=== PATIENT | female | born 1970 | race Caucasian/White ===

== ENCOUNTER 2016-12-16 13:03 | Emergency (ER) | payer BC ==
[2016-12-16 12:25] LABS: BASOPHILS 0.2 %; BASOPHILS ABSOLUTE 0.03 10/3/uL (0.0-0.16); EOSINOPHILS 0.3 %; EOSINOPHILS ABSOLUTE 0.05 10/3/uL (0.0-0.53); ER CBC TAT 0 Hrs 05 Mins; HEMOGLOBIN 14.9 g/dL (12.0-16.0); IMMATURE GRANULOCYTES 0.3 %; IMMATURE GRANULOCYTES ABSOLUTE 0.05 10/3/uL (0.0-0.11); LYMPHOCYTES 11.5 %; LYMPHOCYTES ABSOLUTE 1.95 10/3/uL (0.67-4.30); MANUAL DIFF NO %; MEAN CORPUS HGB CONC 35.5 g/dL (32.0-36.0); MEAN CORPUSCULAR HEMOGLOB 29.6 pg (26.0-34.0); MEAN CORPUSCULAR VOLUME 83.5 fL (80-100); MEAN PLATELET VOLUME 11.3 fL (9.2-13.0); MONOCYTES 2.7 %; MONOCYTES ABSOLUTE 0.46 10/3/uL (0.21-1.20); NEUTROPHILS ABSOLUTE 14.45 10/3/uL (2.02-8.40); PLATELET COUNT 286 10/3/uL (150-400); RBC DISTRIBUTION WIDTH 12.7 % (12.0-16.0); RED CELL COUNT 5.03 10/6/uL (4.0-5.6)
[2016-12-16 12:43] LABS: ALBUMIN 3.9 G/DL (3.5-5.0); ALKALINE PHOSPHATASE 94 U/L (45-117); BUN (BLOOD UREA NITROGEN) 14 MG/DL (6-23); CALCIUM, SERUM 9.7 MG/DL (8.5-10.4); CHLORIDE, SERUM 104 MMOL/L (96-112); CO2 (CARBON DIOXIDE) 27 MMOL/L (24-34); CREATININE 0.74 MG/DL (0.55-1.02); GFR AFRICAN AMERICAN 114 ML/MIN (>=60); GFR NON AFRICAN AMERICAN 99 ML/MIN (>=60); GLOBULIN 4.1 G/DL (2.5-4.1); GLUCOSE, SERUM 117 MG/DL (60-99); POTASSIUM, SERUM 2.6 MMOL/L (3.5-5.3); SGOT(AST) 23 U/L (5-40); SGPT(ALT) 40 U/L (5-65); SODIUM, SERUM 138 MMOL/L (135-148); TOTAL BILIRUBIN 0.4 MG/DL (0-1.2); TROPONIN I <0.02 NG/ML (<0.05)
[2016-12-16 12:46] LABS: LACTATE 2.2 MMOL/L (0.3-2.4)
[2016-12-16 12:53] LABS: ASCORBIC ACID (UR NOT ORDER) NEG (NEG); BILIRUBIN, URINE NEGATIVE (NEG); ER URINALYSIS TAT 0 Hrs 13 Mins; KETONE, URINE TRACE MG/DL (NEG); LEUKOCYTE ESTERASE(NOT OR NEG (NEG); NITRITE (URINE) NEG (NEG); WBC (NOT ORDERED) (RFLEX) 1 (0-5)
[~2016-12-16 13:03] MED LIST: ACAI500 MG OR; ACIPHEX PO; ADVIL PO; ANASPAZ0.125 MG PO; AZO-TABS95 MG OR; BEN25 PO; BIOTIN1000 MCG OR; CALTRA600D PO; CYANO1000T PO; FLEX PO; METHOC500B PO; MSCONT15 PO; MULTIPLE VIT PO; NEUR300 PO; NEXIUM40 PO; PEP20 PO; PR25 PO; PRISTIQ50 MG PO; PROMEGA PO; TENORETIC1 TAB PO; TRI-SPRINTEC PO; V5 PO; VITE PO; XOPEN0.5ML INH; XOPENEX INH; [UNRECOGNIZED DRUG - OTHER]; [UNRECOGNIZED DRUG - OTHER]
[2016-12-29] MEDS ORDERED: CAMRESE PO (11:24)
[2016-12-29] MEDS ORDERED: BENTYL10 PO (11:28)
[2016-12-29] MEDS ORDERED: SIMETHICONE PO (11:29)
[2016-12-29] MEDS ORDERED: MEP50TAB PO (11:30)
[2016-12-29] MEDS ORDERED: KLOR-CON M2020 MEQ PO (11:32)
[2016-12-29] MEDS ORDERED: VITAMIN D31000 UNIT PO (11:33)
[2016-12-29] MEDS ORDERED: BIOTIN5 MG PO (11:34)
[2016-12-29] MEDS ORDERED: MULTIPLE VIT PO (11:35)
[2016-12-29] MEDS ORDERED: TUMERIC PO (11:36)
[2016-12-29] MEDS ORDERED: STOOL SOFTEN240 MG PO (11:37)
[2016-12-29] MEDS ORDERED: BENEFIBER PO (11:37)
== END 2016-12-16 20:04 | disposition home or self-care (01) ==
LOC: ER 13:03
PROVIDERS: Nurse Practitioner
DX: K80.50 Calculus of bile duct without cholangitis or cholecystitis without obstruction (principal); E87.6 Hypokalemia; I10 Essential (primary) hypertension; J45.909 Unspecified asthma, uncomplicated; K21.9 Gastro-esophageal reflux disease without esophagitis; Z88.2 Allergy status to sulfonamides; Z88.5 Allergy status to narcotic agent; Z88.8 Allergy status to other drugs, medicaments and biological substances; Z88.0 Allergy status to penicillin; Z79.899 Other long term (current) drug therapy
CPT/HCPCS: 74176; 76705; 80053; 81001; 83605; 83690; 84484; 84703; 85025; 93005; 96374; 96375; 96376; 99285; A9270-GY; J1170; J2405; J2550; J3480

== ENCOUNTER 2017-01-01 09:48 | Day surgery (SDC) | payer BC ==
[2016-12-28 19:52] LABS: BASOPHILS 0.4 %; BASOPHILS ABSOLUTE 0.03 10/3/uL (0.0-0.16); EOSINOPHILS 1.4 %; EOSINOPHILS ABSOLUTE 0.12 10/3/uL (0.0-0.53); HEMATOCRIT 41.8 % (36.0-48.0); HEMOGLOBIN 13.6 g/dL (12.0-16.0); IMMATURE GRANULOCYTES 0.2 %; IMMATURE GRANULOCYTES ABSOLUTE 0.02 10/3/uL (0.0-0.11); LYMPHOCYTES 28.4 %; LYMPHOCYTES ABSOLUTE 2.39 10/3/uL (0.67-4.30); MEAN CORPUSCULAR HEMOGLOB 28.3 pg (26.0-34.0); MONOCYTES 3.7 %; MONOCYTES ABSOLUTE 0.31 10/3/uL (0.21-1.20); NEUTROPHILS 65.9 %; NEUTROPHILS ABSOLUTE 5.55 10/3/uL (2.02-8.40); RBC DISTRIBUTION WIDTH 12.8 % (12.0-16.0); RED CELL COUNT 4.81 10/6/uL (4.0-5.6)
[2016-12-28 19:54] LABS: MANUAL DIFF NO %; MEAN CORPUS HGB CONC 32.5 g/dL (32.0-36.0); MEAN CORPUSCULAR VOLUME 86.9 fL (80-100); PLATELET COUNT 384 10/3/uL (150-400); WHITE BLOOD CELLS 8.4 10/3/uL (4.5-10.5)
[2016-12-28 20:04] LABS: ALBUMIN 3.6 G/DL (3.5-5.0); ALKALINE PHOSPHATASE 103 U/L (45-117); BUN (BLOOD UREA NITROGEN) 10 MG/DL (6-23); CALCIUM, SERUM 9.4 MG/DL (8.5-10.4); CHLORIDE, SERUM 106 MMOL/L (96-112); CO2 (CARBON DIOXIDE) 26 MMOL/L (24-34); CREATININE 1.01 MG/DL (0.55-1.02); GFR AFRICAN AMERICAN 78 ML/MIN (>=60); GFR NON AFRICAN AMERICAN 68 ML/MIN (>=60); GLOBULIN 3.5 G/DL (2.5-4.1); GLUCOSE, SERUM 93 MG/DL (60-99); POTASSIUM, SERUM 3.8 MMOL/L (3.5-5.3); SGOT(AST) 29 U/L (5-40); SGPT(ALT) 43 U/L (5-65); SODIUM, SERUM 138 MMOL/L (135-148); TOTAL BILIRUBIN 0.3 MG/DL (0-1.2); TOTAL PROTEIN 7.1 G/DL (6.0-8.5)
--- NOTE | ~2017-01-01 | OP ---
Record Of Operation [facility] [address] [place]. [address] NAME: ANTONIO BUTCHER : 74 STATUS : REG [facility]#: [id number] AGE: 46 ADM/REG DATE : 01/01/17 MR#: [id number] REPORT SERV DATE: 01/02/17 DICTATED BY: TIMMY WOLF III DATE: 01/02/17 REPORT STATUS : Draft TRANSCRIBED BY: MODMarcia DATE: 01/02/17 DATE OF PROCEDURE: 01/01/2017 PREOPERATIVE DIAGNOSIS: Symptomatic cholelithiasis and cholecystitis. POSTOPERATIVE DIAGNOSIS: Symptomatic cholelithiasis and cholecystitis, severe cholecystitis. PROCEDURE: Laparoscopic cholecystectomy. ANESTHESIA: General with intubation. COMPLICATIONS: None. ESTIMATED BLOOD LOSS: Less than 30 mL. SPECIMENS: Gallbladder. DRAINS: Samson-Lunsford in abdominal cavity. LAP AND SPONGE COUNT: Correct x3. BRIEF HISTORY: This 46-year-old female, presented with evidence for symptomatic cholelithiasis and cholecystitis. It was felt that laparoscopic cholecystectomy, possible laparotomy, was indicated. This procedure, the risks, benefits, and alternatives, including not limited to the risk for bleeding, infection, common bile duct injury, bile leak, retained common bile duct stone, enterotomy, or injury to any abdominal structure, the definite possible need for laparotomy, possible persistence of her symptoms unrelieved by surgery, possibility of postoperative diarrhea or incisional hernia, and unforeseen complications including deep venous thrombosis, pulmonary embolus, myocardial infarction, stroke, pneumonia, and , were fully and completely explained to the patient and family at length prior to surgery. The fact that this was a major operation with risk for major morbidity and mortality, no guarantee for relief her symptoms were explained to them. The expected length recovery with open laparoscopic procedures was explained. The patient and family had questions which were answered. They fully understood the risks and agreed to surgery as planned. FINDINGS: The patient had evidence for severe gallbladder disease. The gallbladder chirinos were markedly thickened, inflamed, and edematous, and there were dense adhesions between the gallbladder and omentum. The gallbladder chirinos were very thickened and densely adherent to the liver. This extended the length of procedure greatly and for this reason, modifier 22 was added to the procedure code. DESCRIPTION OF PROCEDURE: After being properly identified and after discussing risks of surgery the patient and family again in the preoperative area, she was taken to the operating room, and placed in supine position on the operating room table. General anesthesia was administered. She was intubated without difficulty. The abdomen was prepped Record Of Operation [address] [address] NAME: ANTONIO BUTCHER : 74 STATUS : REG [facility] [place] PAT#: [id number] AGE: 46 ADM/REG DATE : 01/01/17 MR#: [id number] REPORT SERV DATE: 01/02/17 DICTATED BY: TIMMY WOLF III DATE: 01/02/17 REPORT STATUS : Draft TRANSCRIBED BY: MALACHI DATE: 01/02/17 and draped sterilely in usual fashion. After an appropriate "time-out" per [employer] standards, a small transverse incision was made just below the umbilicus. The skin and fascia on either side of this were elevated with towel clips. A Veress needle was placed through the incision into the peritoneal cavity. Correct position of the needle in the peritoneal cavity was confirmed by the hanging drop test. The abdominal cavity was insufflated to about 13 mmHg with carbon dioxide. Correct position of air in the peritoneal cavity was confirmed by palpation. The Veress needle was removed and replaced with a 10 mm trocar. The laparoscope was placed through this. The patient was placed in reverse Trendelenburg position and to her left. A second 10 mm trocar was placed just below the xiphoid process, to the right of falciform ligament, this was done under direct vision with the laparoscope. Two 5 mm trocars were placed along the right subcostal margin, one in the midaxillary line and the other in the midclavicular line. This was also done under direct vision with the laparoscope. The patient has placed in reverse Trendelenburg position and to her left. The upper abdomen was inspected. There was a severe inflammatory process in the right upper quadrant centered around the gallbladder. Initially, the gallbladder was completely engulfed with the omentum which was densely adherent to it, the gallbladder was not even visible. The appropriate instruments were placed through the trocars. Using sharp dissection, the omentum was carefully dissected away from the gallbladder itself. The gallbladder chirinos were markedly thickened, inflamed, edematous, and the gallbladder was very distended. All consistent with severe, acute, and chronic cholecystitis. The gallbladder was decompressed with a large needle. Using sharp dissection, the adhesions between the gallbladder and omentum were carefully divided. The omentum was densely adherent to the gallbladder and completely encasing it. This was done very carefully. The gallbladder was then grasped and the infundibulum of gallbladder was retracted laterally and inferiorly, so as to expose the triangle of Calot. Using sharp dissection, the cystic duct and cystic artery were carefully defined proximally and distally. The fibrous and fatty tissue between these structures was divided, so as to clearly identify the critical view of safety. The cystic duct was fairly long. The junction of the cystic duct with the common bile duct was appreciated, but was not skeletonized. The cystic artery was similarly defined proximally and distally. The lower portion the gallbladder was dissected from the liver plate, so as to clearly identify the critical view of safety and the triangle of Calot. Once these structures were clearly defined, the cystic duct was clipped with two clips on the common bile duct side and one on the gallbladder side, all placed as close to the gallbladder as possible, taking care not encroach upon or injure the common bile duct in any way. The cystic duct was then divided between these clips as close to the gallbladder as possible. We elected not to perform a cholangiogram, because there was no preoperative or intraoperative evidence for biliary dilatation, and because of the patient's preoperative liver enzymes were normal, and because her biliary anatomy was clearly defined. The cystic artery was then similarly clipped and divided as close to the gallbladder as possible. Using the spatula and the cautery, the gallbladder was carefully dissected from the liver bed. This was done very carefully. The gallbladder was densely adherent to the liver bed making the dissection difficult. Record Of Operation [facility] [address] [facility] [place]. [address] NAME: ANTONIO BUTCHER : 74 STATUS : REG [facility]#: [id number] AGE: 46 ADM/REG DATE : 01/01/17 MR#: [id number] REPORT SERV DATE: 01/02/17 DICTATED BY: TIMMY WOLF III DATE: 01/02/17 REPORT STATUS : Draft TRANSCRIBED BY: MODL DATE: 01/02/17 Before the gallbladder was completely removed, the gallbladder bed and portal areas were irrigated numerous times with saline. The saline was aspirated dry. This process was repeated several times until hemostasis was meticulously and thoroughly assured in all areas. It was also assured that the clips in the portal area were in good position and that there was no extravasation of bile from any accessory bile ducts. Once this was assured, the gallbladder was completely dissected away from the liver and placed in the Endo pouch. The liver bed was again elevated, irrigated, inspected for meticulous and thorough hemostasis and for absence of any biliary extravasation. Once this was assured, a Samson- Lunsford drain was placed in the gallbladder bed and brought out through one of the lateral trocar sites. Again hemostasis was assured. The gallbladder and the Endopouch were then brought out through the infraumbilical trocar site after placing the laparoscope through the subxiphoid trocar. The fascia of the infraumbilical incision was closed with 0 Vicryl suture. The lateral trocars were removed and these three lower trocar sites were inspected on the underside for hemostasis with the laparoscope. Once this was assured, the subxiphoid trocar was removed under direct vision with laparoscopic to assure hemostasis in this incision. The air was removed from the peritoneal cavity through the skin incisions. The skin incisions were inspected for hemostasis. They were closed with running subcuticular 4- 0 Monocryl stitches and injected with 0.5% Marcaine. Dressings were applied. Anesthesia was reversed. The patient was taken to the recovery room in stable condition. She tolerated the procedure well. Her family was informed the results of surgery. The patient will be discharged when stable and comfortable tolerating liquids, and able to void, and ambulate. Her family was advised that she should keep wounds clean and dry for 48 hours, that she should not drive for three to four days after surgery or while using narcotics, and that she should resume her usual medications. 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 Her family was instructed on care of the GILMA drain. She was asked to return in one week for followup or sooner if any nausea, vomiting, fever, chills, wound drainage, abdominal pain, weakness, or other problems prior to that time. This procedure was extremely difficult and the length of procedure extended 100% for the above reasons. For this reason, modifier 22 was added to the procedure code. RHJ/MODL Timmy Wolf III, M.D. / [id number] CC: Law Arce III, M.D.
--- NOTE | ~2017-01-01 | PREOPHP ---
PreOp History and Physical [id number] [place]. [address] NAME: ANTONIO BUTCHER : 74 STATUS : PRE [facility] [place] PAT#: [id number] AGE: 46 ADM/REG DATE : MR#: [id number] REPORT SERV DATE: 01/01/17 DICTATED BY: TIMMY WOLF III DATE: 12/23/16 REPORT STATUS : Draft TRANSCRIBED BY: MODL DATE: 12/23/16 HISTORY OF PRESENT ILLNESS: This 46-year-old female comes to the operating room for laparoscopic cholecystectomy and possible laparotomy for symptomatic cholelithiasis and cholecystitis. The patient complains of epigastric pain. She required evaluation in the emergency room. Gallbladder ultrasound was performed, which showed evidence for gallstones. The patient describes again pain primarily in the epigastric area and pain migrating to the back. The patient is felt to have symptomatic cholelithiasis and cholecystitis. The patient comes to the operating room now for laparoscopic cholecystectomy, possible laparotomy. PAST MEDICAL HISTORY: 1. Gastroesophageal reflux disease. 2. IBS. 3. Chronic pain, requiring chronic pain management. MEDICATIONS: Phenergan, levalbuterol, atenolol, gabapentin, morphine sulfate, cyclobenzaprine, diazepam, Benadryl, Advil, omega-3, Pepcid, optimized biotin, meperidine, and Nexium. ALLERGIES: PENICILLIN, SULFA, HYDROCODONE AND OXYCODONE, PROPOXYPHENE, TRIMETHOPRIM. PAST SURGICAL HISTORY: Status post appendectomy. FAMILY HISTORY: Unremarkable. SOCIAL HISTORY: The patient has a previous history of tobacco abuse. No history of alcohol use. REVIEW OF SYSTEMS: The patient complains of fatigue and weight loss, night sweats, shortness of breath, wheezing, asthma, swelling in her hands and feet, abnormal bleeding, joint pain, back pain. PHYSICAL EXAMINATION: GENERAL: An obese female, in no acute distress. She is alert and oriented x3. VITAL SIGNS: Blood pressure 117/81, pulse 115, temperature 98.5. HEENT: Unremarkable. Cranial nerves 2 through 12 are normal. LUNGS: Clear. CARDIAC: Normal. ABDOMEN: Soft and nontender. The patient is very obese. EXTREMITIES: Normal with no edema. LABORATORY DATA: Gallbladder ultrasound shows gallstones. ASSESSMENT: A 46-year-old female with, 1. Symptomatic cholelithiasis and cholecystitis. 2. Obesity. PreOp History and Physical [address] [address] NAME: ANTONIO BUTCHER : 74 STATUS : PRE [facility] [place] PAT#: [id number] AGE: 46 ADM/REG DATE : MR#: [id number] REPORT SERV DATE: 01/01/17 DICTATED BY: TIMMY WOLF III DATE: 12/23/16 REPORT STATUS : Draft TRANSCRIBED BY: MODMarcia DATE: 12/23/16 3. Chronic pain, requiring chronic narcotic use. 4. Chronic narcotic use. 5. History of tobacco abuse. 6. Irritable bowel syndrome. 7. Gastroesophageal reflux disease. PLAN: The patient comes to the operating room now for laparoscopic cholecystectomy and possible laparotomy. This procedure, the risks, benefits, and alternatives, including but not limited to the risk for bleeding, infection, common bile duct injury, bile leak, retained common bile stone, enterotomy, or injury to any abdominal structure, the definite possible need for laparotomy, possible persistence of her symptoms unrelieved by surgery, possibility of postoperative diarrhea or incisional hernia, unforeseen complications including deep venous thrombosis, pulmonary embolus, myocardial infarction, stroke, pneumonia, and , have been fully and completely explained to the patient length prior to surgery. The fact that this is a major operation with risk for major morbidity and mortality, no guarantee for relief of her symptoms has been explained. The expected length of recovery with open laparoscopic procedure has been explained. The patient's questions have been answered. She clearly and fully understands the risks and agrees to surgery as planned. Due to her chronic narcotic use, possibility again that her symptoms may be related to some other etiology may persist unrelieved by surgery has been explained. Again, the patient's questions have been answered. She understands the risks and agrees to surgery as planned. HALLE/MALACHI Timmy Wolf III, M.D. / [id number]
[~2017-01-01 09:48] MED LIST changes: +BENEFIBER PO; +BENTYL10 PO; +BIOTIN5 MG PO; +CAMRESE PO; +KLOR-CON M2020 MEQ PO; +MEP50TAB PO; +SIMETHICONE PO; +STOOL SOFTEN240 MG PO; +TUMERIC PO; +VITAMIN D31000 UNIT PO
[2017-01-01 16:52] LABS: HEMATOCRIT 39.2 % (36.0-48.0); HEMOGLOBIN 13.2 g/dL (12.0-16.0)
== END 2017-01-01 23:59 | disposition home or self-care (01) ==
LOC: SDC 09:48
PROVIDERS: Surgery
PROC: 0FT44ZZ Resection of Gallbladder, Percutaneous Endoscopic Approach (ICD-10-PCS; principal; 2017-01-01 11:00)
DX: K80.10 Calculus of gallbladder with chronic cholecystitis without obstruction (principal); K21.9 Gastro-esophageal reflux disease without esophagitis; E66.9 Obesity, unspecified; E78.5 Hyperlipidemia, unspecified; F41.9 Anxiety disorder, unspecified; F32.9 Major depressive disorder, single episode, unspecified; J45.909 Unspecified asthma, uncomplicated; G89.29 Other chronic pain; K58.9 Irritable bowel syndrome, unspecified; Z88.0 Allergy status to penicillin; Z88.2 Allergy status to sulfonamides; Z88.1 Allergy status to other antibiotic agents; Z88.5 Allergy status to narcotic agent; Z68.36 Body mass index [BMI] 36.0-36.9, adult; Z90.49 Acquired absence of other specified parts of digestive tract; Z87.891 Personal history of nicotine dependence; Z98.890 Other specified postprocedural states
CPT/HCPCS: 36415; 71020; 80053; 84703; 85014; 85018; 85025; 88304; 93005; J0690; J1170; J2250; J2405; J2550; J2710